=== PATIENT | male | born 1945 | race Caucasian/White ===

== ENCOUNTER 2016-07-08 09:05 | Day surgery (SDC) | payer OTHER ==
[~2016-07-08] VITALS: Ht 185.4 cm; Wt 98.5 kg
[2016-07-08] VITALS (9 sets, daily range): BP systolic 133–170; BP diastolic 85–104; PULSE 70–82; RESP 16–21; O2SAT 93–99
[~2016-07-08 09:05] MED LIST: ASPI-973 PO; CREST10T PO; CeFAZolin Inj 2 GM in IV Premix 1 EACH IV ONE; LORA0.5T PO; PANT40TA2 PO
[2016-07-08] MEDS ORDERED: Propofol 10,000 mCg/mL 20 mL Inj ONE (09:06)
[2016-07-08] MEDS ORDERED: MetoCLOpramide 5 mg/mL 2 mL Inj ONE (09:06)
[2016-07-08] MEDS ORDERED: Dexamethasone 4 mg/mL Inj ONE (09:06)
[2016-07-08] MEDS ORDERED: fentaNYL-PF 50 mCg/mL 2 mL Inj ONE (09:06)
[2016-07-08] MEDS ORDERED: Ondansetron 2 mg/mL 2 mL Inj ONE (09:06)
[2016-07-08] MEDS ORDERED: EPHEDrine/NS 5 mg/mL 5 mL Syringe ONE (09:06)
[2016-07-08] MEDS: Lactated Ringer's 1,000 ML IV SCH ×2 (09:24→11:35)
[2016-07-08] MEDS ORDERED: Iopamidol-300 50 mL Inj IV ONE (11:52)
[2016-07-08] MEDS ORDERED: Lactated Ringer's 1,000 ML IV SCH (12:01)
[2016-07-08] MEDS ORDERED: Lactated Ringer's 500 ML IV PRN (12:01)
[2016-07-08] MEDS ORDERED: MetoCLOpramide 5 mg/mL 2 mL Inj IVPUSH PRN (12:05)
[2016-07-08] MEDS ORDERED: Labetalol 5 mg/mL 4 mL Inj IV PRN (12:05)
[2016-07-08] MEDS ORDERED: fentaNYL-PF 50 mCg/mL 2 mL Inj IVPUSH PRN (12:05)
[2016-07-08] MEDS ORDERED: Atropine 0.4 mg/mL Inj IVPUSH PRN (12:05)
[2016-07-08] MEDS ORDERED: Phenylephrine 10,000 mCg/mL Inj IVPUSH PRN (12:05)
[2016-07-08] MEDS ORDERED: Ondansetron 2 mg/mL 2 mL Inj IVPUSH PRN (12:05)
[2016-07-08] MEDS ORDERED: EPHEDrine Sulfate 50 mg/mL Inj IVPUSH PRN (12:05)
[2016-07-08] MEDS ORDERED: HYDROcodone-APAP 5-325 mg Tablet PO PRN (13:05)
--- NOTE | 2016-07-08 13:21 | DRSVH ---
PROCEDURE: X-RAY RETROGRADE UROGRAPHY INDICATIONS: RIGHT CYSTO STONE REMOVAL TECHNIQUE: 5 intra-operative images acquired by the Urology service. COMPARISON: Outside Film, CT, CT ABD PELVIS WO CON, 06/30/2016, 5:54. FINDINGS: Exam limited to 5 submitted images. Within these limits, there is mild right hydronephros is. No intraluminal filling defects seen within the renal collecting system. Only a small portion o f the mid to distal ureter is visualized which is normal in course and caliber. No ureteral intralum inal filling defects. No extravasation. Ureteral stent placed. IMPRESSION: 1. Mild right hydronephrosis and normal appearance of the ureter were visualized. 2. Placement of ureteral stent. Dictated by: Adonis Watt RRA Interpreted: Lucina Pedroza MD on 07/08/2016 at 13:19 Transcribed by: MIS on 07/08/2016 at 13:20 Approved by: Lucina Pedroza MD, PhD on 07/08/2016 at 15:37
--- NOTE | 2016-07-08 13:46 | PCM.HPANE ---
Patient Data Surgeon Admitting Provider: Attending Provider:Fanny Courtney MD Primary Care Physician:Kit Cole MD Other Provider:Bre Navarroingham Anesthesia Reason for Visit Right Ureteral Stone Ht/WT & BMI Height (Feet): 6 Height (Inches): 1 Weight (Kilograms): 98.5 Body Mass Index 28.00 Allergies Coded Allergies: No Known Allergies (Unverified , 07/06/16) Past Anesthesia History Anesthesia History: Denies:: Abnormal Airway, Anesthesia Reactions, Difficult Intubation, Fam Anesthesia Reaction, Fam Malignant Hypertherm, Malignant Hyperthermia Diabetes History Hx Diabetes?: No MRSA MRSA: No Medications Blood Thinner: Aspirin Last Dose Blood Thinner: June 29, 2016 Home Meds Incl Beta Nina: No Reported Medications Lorazepam 0.5 Mg Tablet0.5 Mg PO HS PRN For Insomnia Ref 0 07/06/16 Aspirin 81 Mg [id number] Mg PO DAILY Ref 0 07/06/[address] (Protonix)40 Mg [id number] Mg PO DAILY Ref 0 07/06/16 Rosuvastatin Calcium (Crestor)10 Mg [id number] Mg PO DAILY 30 Days Ref 0 07/06/16 History History of ENT Problems?: Yes HEENT History: Positive for:: Dysphagia (OCCAS) Denies:: Abnormal Airway Cataracts Difficult Intubation Glaucoma Hearing Problem Sinus Problem TMJ Denture Type: None Teeth Condition: Missing Teeth Other HEENT Pertinent History: S/P TONSILLECTOMY Hx of Heart Problems?: Yes Cardiovascular History: Positive for:: Chest Pain (2007 MPS WNL) Denies:: AICD Abdominal Aortic Aneurism Atrial Fibrillation Cardiac Surgery Congestive Heart Failure Coronary Artery Disease Edema Heart Murmur Hypertension (HYPERLIPIDEMIA) Irregular Heartbeat Pacemaker Peripheral Vascular Rheumatic Fever Thrombophlebitis Valvular Heart Disease Hx of Respiratory Problem?: No Respiratory History: Denies:: Asthma COPD Chest Surgery Cough Dyspnea Emphysema Hemoptysis Oxygen Administration Pneumonia Pulmonary Embolism Tuberculosis Use of C-PAP Machine Use of Inhalers / NEBS Hx Neurologic Problems?: Yes Neurological History: Denies:: Alzheimer's Disease CVA (CVA RULED OUT;1-2 BOUTS OF SOME TYPE OF AMNESIA 5+YRS AGO) Dementia Dizziness Headaches Multiple Sclerosis Parkinson's Disease Peripheral Neuropathy Seizures TIA Hx of GI Problems?: Yes Gastrointestinal History: Denies:: Cirrhosis Diverticulitis Gall Bladder Disease Gastroesphageal Reflux Gastrointestinal Bleeding Heartburn Hepatitis Hiatal Hernia Liver Disease Rectal Bleeding Hx of Problems?: Yes Genitourinary History: Positive for:: Kidney Stones (HX OF PASSING PRIOR STONE RT URETERAL STONE=CURRENT PROBLEM) Denies:: HX of Hemodialysis Urinary Tract Infection HX of Peritoneal Dialysis: No Other Pertinent History: C/OF RT FLANK PAIN Male Hx: Positive for:: Testicular Surgery (S/P VASECTOMY) Denies:: Prostate Problems Scrotal Mass Skin History: Denies:: History Skin Disorders? Pressure Ulcers Hx Musculoskeletal Problems?: No Musculoskeletal History: Denies:: Back Injury Degenerative Joint Fibromyalgia Joint Replacement Musculoskeletal Trauma Myasthenia Gravis Osteoarthritis Rheumatoid Arthritis Systemic Lupus Hx of Psycho/Social Problems?: Yes Psycho Social History: Positive for:: Anxiety Denies:: Bipolar Disorder Hx Depression Suicide Attempt Hx Surgeries?: Yes (TONSILLECTOMY,VASECTOMY) Hx Any Other Health Problems?: Yes Other History: Denies:: Cancer Endocrine Disease Hospitalization Thyroid Disease History Blood Transfusions: Denies:: Blood Transfusions Hx Diabetes: No Hx Alcohol Use: Yes (OCCAS)Have You Smoked inLast 12 mo: No Stop/Bang S-Snoring: Do You Snore Loudly: No T-Tired: feel tired, fatigued: No O-Obsered: Observed not breath: Yes P-Blood Pressure: treated: No B- Body Mass Index > 35 kg/m2: No A- Age over 50: Yes N- Neck Large Circumference: No G- Gender Male: Yes MITESH Total Score: 3 Risk Assessment Category Category 1A: Patient has history of documented sleep apnea, and HAS NOT received any narcotic, sedative or anesthesia administration during this stay. Category 1B: Patient has history of documented sleep apnea, and HAS received any narcotic , sedative or anesthesia administration during this stay Category 2: Patient has SUSPECTED Obstructive Sleep Apnea, and HAS received any narcotic , sedative or anesthesia administration during this stay. Category 3: Patient has SUSPECTED Obstructive Sleep Apnea and HAS NOT received narcotic, sedative or anesthesia administration during this stay. Category 4: Outpatient in Procedural Areas with known sleep apnea or who screen positive for High Risk via the STOP/BANG questionnaire. Exam Exam Vital Signs Vital Signs Date Time Temp Pulse Resp B/P Pulse Ox O2 Delivery O2 Flow Rate FiO2 07/08/16 09:38 161/93 07/08/16 09:33 36.4 82 16 170/104 95 Room Air General Appearance: Alert, Oriented X3, Cooperative, No Acute Distress HEENT/AIRWAY: MP 2, Neck Movement (FROM), Mouth Opening (3 FBMO) Lungs: Normal Air Movement Heart: Regular Rate/Rhythm Meds/Labs/Diagnostics Admission Meds Current Medications Lactated Ringer's (Lr) 1,000 ml @ 120 mls/hr [id number] IV Last administered on t 09:24; Start 07/08/16 at 05:00; Stop 07/08/16 at 13:19 Plan Impression Patient chart reviewed, patient interviewed and anesthestic plan with risks, benefits, and alternatives discussed, and informed consent obtained. NPO per Anesth. Guidelines: Yes ASA Physical Status: ASA2 Mod Systemic Disease Anesthetic Plan: GA Bene/Risks/Altern/Consents: Yes HP Complete Prior to Induction: Yes Patrick Collins MD July 08, 2016 09:54
--- NOTE | 2016-07-08 13:46 | PCM.ANEP1 ---
Post Anesthesia PACU Phase 1 Assessment Vital Signs Vital Signs Date Time Temp Pulse Resp B/P Pulse Ox O2 Delivery O2 Flow Rate FiO2 07/08/16 13:36 75 16 140/90 93 Room Air 07/08/16 13:25 36.1 74 16 134/85 94 Room Air 07/08/16 13:10 73 21 137/88 95 Room Air 07/08/16 13:05 70 20 133/85 99 Simple Mask 10 07/08/16 13:00 77 17 143/85 99 Simple Mask 10 07/08/16 12:52 36.2 72 16 137/88 99 Simple Mask 10 07/08/16 09:38 161/93 07/08/16 09:33 36.4 82 16 170/104 95 Room Air Anesthetic Administered: GA Level of Alertness: Awake, talking BLANTON's with Equal Strength: Yes Pain: No Nausea or Vomiting: No CV Function & Hydration Stable: No Airway Device: Oxygen Delivery: Room Air Lungs: Normal Air Movement Dermatome Level: Full Sensation PACU Phase 2 Assessment Complications: No Follow up Care: N/A Patient Instructions Provided: N/A Patrick Collins MD July 08, 2016 13:46
--- NOTE | 2016-07-08 19:03 | OP ---
[address] [address] OPERATIVE REPORT PATIENT: JUNE KULKARNI : 1945 MR#: [id number] ADMIT: 07/08/2016 JOB ID: [id number] DATE OF SURGERY: 07/08/2016 SURGEON: Fanny Courtney MD DOBBY LOOM WEAVER: None. PREOPERATIVE DIAGNOSIS(ES): Right proximal ureteral stone. POSTOPERATIVE DIAGNOSIS(ES): Right proximal ureteral stone. PROCEDURE PERFORMED: 1. Cystoscopy and right retrograde pyelogram. 2. Right ureteroscopy with laser lithotripsy and stone basketing. 3. Right ureteral stent placement. FINDINGS: 1. Right proximal ureteral stone, 11 mm. 2. Ureteral edema surrounding the stone. ANESTHESIA: General. ESTIMATED BLOOD LOSS: Less than 5 mL. DRAINS: 6 x 28 right double-J ureteral stent. SPECIMEN: Right ureteral stone. COMPLICATIONS: None. CONDITION: Stable. INDICATION FOR PROCEDURE: The patient is a 70-year-old gentleman with a right proximal ureteral stone, who now presents for ureteroscopy. DESCRIPTION OF PROCEDURE: After informed consent was obtained, the patient was taken to the operating room. A time-out was performed identifying correct patient, surgical site, procedure. General anesthesia was smoothly induced. He was given intravenous antibiotics just prior to start of procedure. He was placed in the lithotomy position and all pressure points were identified and appropriately padded. His genitals were then prepped and draped in usual sterile fashion. A 22-[place]an rigid cystoscope was applied in patient's urethra and advanced to the bladder. The bladder was drained. The bladder was inspected. It appeared normal. The right ureteral orifice was seen in orthotopic position. It was cannulated with a 5-[place]an open-ended Pollack catheter. Retrograde pyelogram was performed. It appeared normal though there was opacification on production associate film consistent with a stone at the right proximal ureter. Two Sensor tip wires were then advanced into the renal pelvis in succession. A 12/14 access sheath, 28 cm long was then placed over one of the wires and advanced into the distal ureter. Flexible ureteroscopy then commenced. The stone was seen in the proximal ureter and ensconced within ureteral edema. A 273 micron laser fiber wire was used to break the stone into small pieces. Eventually the stone became small enough that it was traced back into the upper pole calyx. It was treated there with the laser. It was broken up into very small pieces. A Zero Tip Nitinol basket was used to basket the significant stone fragments that were each about 2 mm or so. This was passed off the table to Pathology for stone analysis. The remaining wire was then backloaded in the cystoscope and a 6 x 28 double-J ureteral stent was loaded over it and advanced to the renal pelvis as seen under fluoroscopy. The wire was then removed leaving a nice coil in the patient's bladder seen under direct vision. The bladder was drained. The plate patient was then reversed from general anesthesia and taken to PACU in good and stable condition. CARITO
[2016-07-18 14:12] LABS: Stone Color Brown (.)
== END 2016-07-08 23:59 | disposition home or self-care (01) ==
LOC: SAS 09:05
PROVIDERS: ATTEND Urology
PROC: 0T768DZ Dilation of Right Ureter with Intraluminal Device, Via Natural or Artificial Opening Endoscopic (ICD-10-PCS; 2016-07-08)
PROC: 0TF68ZZ Fragmentation in Right Ureter, Via Natural or Artificial Opening Endoscopic (ICD-10-PCS; principal; 2016-07-08 11:00)
DX: N20.1 Calculus of ureter (principal); Z87.442 Personal history of urinary calculi
CPT/HCPCS: 52356; 74420; 82360; C2617; J0690; J1100; J1885; J2405; J2765; J3010; J7120; Q9967